=== PATIENT | female | born 1960 | race Caucasian/White ===

== ENCOUNTER 2022-11-14 21:01 | Inpatient (IN) | payer MEDICAID ==
[~2022-11-14] VITALS: Ht 170.2 cm; Wt 46.7 kg
[2022-11-14 22:11] LABS: BASOPHILS # (AUTO) 0.1 X10'3 (0-0.2); BASOPHILS % (AUTO) 1.1 % (0-1); EOSINOPHILS % (AUTO) 0.9 % (0-6); LYMPHOCYTES # (AUTO) 1.6 X10'3 (1.1-4.8); LYMPHOCYTES % (AUTO) 34.2 % (21-51); MEAN CORPUSCULAR HGB CONC 27.3 g/dL (33.0-36.5); MEAN CORPUSCULAR VOLUME 62.1 FL (78-98); MEAN PLATELET VOLUME 8.2 FL (7.4-10.4); MONOCYTES # (AUTO) 0.4 X10'3 (0-0.9); MONOCYTES % (AUTO) 8.5 % (2-12); NEUTROPHILS # (AUTO) 2.5 X10'3 (1.8-7.7); NEUTROPHILS % (AUTO) 55.3 % (42-75); PLATELET COUNT 252 X10'3 (140-440); RED BLOOD COUNT 3.05 X10'6 (4.20-5.60); RED CELL DISTRIBUTION WIDTH 21.6 % (11.5-14.5); WHITE BLOOD COUNT 4.6 X10'3 (4.5-11.0)
[2022-11-14 22:19] LABS: HEMATOCRIT 18.9 % (35.0-45.0); HEMOGLOBIN 5.2 g/dl (12.0-16.0)
[2022-11-14 22:23] LABS: ALANINE AMINOTRANSFERASE 10 U/L (12-78); ALBUMIN/GLOBULIN RATIO 0.5 (1.1-1.5); ALKALINE PHOSPHATASE 103 IU/L (46-116); ANION GAP 5 (8-16); ASPARTATE AMINO TRANSFERASE 15 U/L (10-37); BILIRUBIN,TOTAL 0.2 MG/DL (0.1-1.0); BLOOD UREA NITROGEN 11 MG/DL (7-18); BUN/CREATININE RATIO 21.2 (6.6-38.0); CALCIUM 8.3 MG/DL (8.5-10.1); CHLORIDE 104 MMOL/L (99-107); CREATININE 0.52 MG/DL (0.40-0.90); GLUCOSE 97 MG/DL (70-104); POTASSIUM 3.7 MMOL/L (3.5-5.1); SODIUM 137 MMOL/L (135-145); TOTAL CARBON DIOXIDE 28.2 MMOL/L (24-32); TOTAL PROTEIN 6.3 G/DL (6.4-8.2); eGFR > 90 ML/MIN
[2022-11-14 22:31] LABS: ANISOCYTOSIS 3+; MICROCYTOSIS 2+; PLATELET ESTIMATE NORMAL
[2022-11-14 22:32] LABS: ELLIPTOCYTES FEW; HYPOCHROMASIA 1+; POLYCHROMASIA FEW
[2022-11-14 22:33] LABS: TEAR DROP CELLS FEW
[2022-11-14] MEDS ORDERED: acetaminophen 325mg tablet PO ONE (22:40)
[2022-11-14] MEDS ORDERED: famotidine 20mg tablet PO ONE (22:40)
[2022-11-14] MEDS ORDERED: mag hydrox/Alum hydrox/simeth 30ml oral suspension PO ONE (22:40)
[2022-11-14 22:55] LABS: LIPASE < 50 U/L (73-393)
[2022-11-14] MEDS ORDERED: iohexol 350MG/ML 100ml bottle IV ONE (23:01)
[2022-11-15] VITALS (7 sets, daily range): BP systolic 95–114; BP diastolic 41–66
[2022-11-15] MEDS ORDERED: potassium Cl 20 mEq SR tablet PO PRN ×2 (02:25)
[2022-11-15] MEDS ORDERED: magnesium Cl slow-release 64mg tablet PO PRN (02:25)
[2022-11-15] MEDS ORDERED: ondansetron/PF 4mg/2ml inj IV PRN (02:25)
[2022-11-15] MEDS ORDERED: acetaminophen 325mg tablet PO PRN (02:25)
[2022-11-15] MEDS ORDERED: magnesium hydroxide 30ml (MOM) UD suspension PO PRN (02:25)
[2022-11-15] MEDS ORDERED: magnesium 4gm in 100ml NS 100 ML IV PRN (02:25)
[2022-11-15] MEDS ORDERED: potassium Cl 40MEQ/1/2NS 520ml 520 ML IV PRN (02:25)
[2022-11-15 02:43] LABS: CLARITY,URINE SLIGHTLY CLOUDY (Clear); COLOR,URINE YELLOW (Yellow); GLUCOSE, URINE NEGATIVE (Neg); KETONES,URINE NEGATIVE (Neg); LEUKOCYTE ESTERASE ,URINE NEGATIVE (Neg); NITRITES, URINE NEGATIVE (Neg); OCCULT BLOOD,URINE NEGATIVE (Neg); PH,URINE 7.5 (4.8-8.0); PROTEIN,URINE NEGATIVE (Neg); UROBILINOGEN,URINE 0.2 E.U/dL (0.2-1.0)
[2022-11-15] MEDS: normal saline 1000ml 1,000 ML IV SCH (02:46)
[2022-11-15] MEDS: mag hydrox/Alum hydrox/simeth 30ml oral suspension PO PRN ×4 (02:46→22:30)
[2022-11-15 02:48] LABS: UA COLLECTION TYPE CLN CATCH MIDSTREAM
[2022-11-15 02:50] LABS: RBC,URINE 0-2 /HPF (0-2); WBC,URINE 0-4 /HPF (0-4)
[2022-11-15 02:51] LABS: BACTERIA,URINE 4+ /HPF (Neg); MUCUS STRANDS FEW /LPF (Neg); SQUAMOUS EPITHELIAL CELL,UR FEW /LPF (FEW)
[2022-11-15] MEDS ORDERED: NO HOME MEDS (02:55)
[2022-11-15 02:57] LABS: URINE AMPHETAMINE SCREEN NEGATIVE (Neg); URINE BARBITUATE SCREEN NEGATIVE (Neg); URINE BENZODIAZEPINES SCREEN NEGATIVE (Neg); URINE CANNABINOID SCREEN NEGATIVE (Neg); URINE COCAINE SCREEN NEGATIVE (Neg); URINE METHADONE SCREEN NEGATIVE (Neg); URINE OPIATE SCREEN NEGATIVE (Neg); URINE PHENCYCLIDINE SCREEN NEGATIVE (Neg)
[2022-11-15 04:13] LABS: POTASSIUM 4.3 MMOL/L (3.5-5.1)
--- NOTE | 2022-11-15 06:14 | NUR ---
Patient reports burning type epigastric pain recurrent. provider notified maalox given 3 hours ago, provider advises give again, change order to maalox po 3hrs PRN
--- NOTE | 2022-11-15 07:21 | NUR ---
PT REPORTED ABD PAIN DURING MORNING EVAL - MAALOX GIVEN PT HAS A PRN AND STATES THIS HELPED HER LAST NIGHT.
[2022-11-15] MEDS: docusate sod 100mg capsule PO SCH ×3 (08:00→19:54)
[2022-11-15] MEDS ORDERED: enoxaparin 40mg/0.4ml syringe SUBCUT SCH (08:00)
[2022-11-15] MEDS: K and/or MAG REPLACEMENT MC SCH ×2 (08:50→19:19)
--- NOTE | 2022-11-15 12:31 | NUR ---
AGREE WITH PHYSICAL ASSESSMENT DONE BY TODD YOUSIF Addendum: 11/15/22 at 1233 by Brenda Frias RN Amended: Links added.
[2022-11-15 13:08] LABS: BASOPHILS % (AUTO) 0.7 % (0-1); EOSINOPHILS # (AUTO) 0.1 X10'3 (0-0.9); EOSINOPHILS % (AUTO) 1.8 % (0-6); LYMPHOCYTES # (AUTO) 1.5 X10'3 (1.1-4.8); LYMPHOCYTES % (AUTO) 39.9 % (21-51); MEAN CORPUSCULAR HEMOGLOBIN 17.5 PG (27.0-31.0); MEAN CORPUSCULAR HGB CONC 27.6 g/dL (33.0-36.5); MEAN CORPUSCULAR VOLUME 63.4 FL (78-98); MEAN PLATELET VOLUME 8.1 FL (7.4-10.4); MONOCYTES # (AUTO) 0.3 X10'3 (0-0.9); MONOCYTES % (AUTO) 9.3 % (2-12); NEUTROPHILS # (AUTO) 1.8 X10'3 (1.8-7.7); NEUTROPHILS % (AUTO) 48.3 % (42-75); PLATELET COUNT 238 X10'3 (140-440); RED BLOOD COUNT 2.89 X10'6 (4.20-5.60); RED CELL DISTRIBUTION WIDTH 21.6 % (11.5-14.5); WHITE BLOOD COUNT 3.7 X10'3 (4.5-11.0)
[2022-11-15 13:20] LABS: % IRON SATURATION 4 % (11-46); IRON 12 UG/DL (49-151); TOTAL IRON BINDING CAPACITY 268 UG/DL (259-388)
[2022-11-15 13:26] LABS: ALANINE AMINOTRANSFERASE 6 U/L (12-78); ALBUMIN 1.8 G/DL (3.4-5.0); ALBUMIN/GLOBULIN RATIO 0.4 (1.1-1.5); ALKALINE PHOSPHATASE 88 IU/L (46-116); ANION GAP 5 (8-16); ASPARTATE AMINO TRANSFERASE 8 U/L (10-37); BILIRUBIN,TOTAL 0.2 MG/DL (0.1-1.0); BLOOD UREA NITROGEN 7 MG/DL (7-18); BUN/CREATININE RATIO 13.7 (6.6-38.0); CALCIUM 8.3 MG/DL (8.5-10.1); CHLORIDE 106 MMOL/L (99-107); CREATININE 0.51 MG/DL (0.40-0.90); GLUCOSE 91 MG/DL (70-104); POTASSIUM 4.5 MMOL/L (3.5-5.1); SODIUM 137 MMOL/L (135-145); TOTAL CARBON DIOXIDE 26.4 MMOL/L (24-32); TOTAL PROTEIN 5.9 G/DL (6.4-8.2); eGFR > 90 ML/MIN
[2022-11-15 13:34] LABS: HEMATOCRIT 18.3 % (35.0-45.0); HEMOGLOBIN 5.1 g/dl (12.0-16.0)
[2022-11-15 13:44] LABS: ANISOCYTOSIS 3+; HYPOCHROMASIA 2+; MICROCYTOSIS 2+; PLATELET ESTIMATE NORMAL; POIKILOCYTOSIS FEW; SCHISTOCYTES FEW; STOMATOCYTES FEW
--- NOTE | 2022-11-15 17:33 | NUR ---
Received report from Ruthie in [place].
--- NOTE | 2022-11-15 18:27 | NUR ---
Problems reprioritized. Patient report given to Rachel YOUSIF, questions answered & plan of care reviewed with .
[2022-11-15 20:14] LABS: HEMATOCRIT 23.8 % (35.0-45.0); HEMOGLOBIN 7.2 g/dl (12.0-16.0); MEAN CORPUSCULAR HEMOGLOBIN 20.3 PG (27.0-31.0); MEAN CORPUSCULAR HGB CONC 30.2 g/dL (33.0-36.5); MEAN CORPUSCULAR VOLUME 67.4 FL (78-98); MEAN PLATELET VOLUME 8.5 FL (7.4-10.4); PLATELET COUNT 241 X10'3 (140-440); RED BLOOD COUNT 3.54 X10'6 (4.20-5.60); RED CELL DISTRIBUTION WIDTH 26.6 % (11.5-14.5); WHITE BLOOD COUNT 5.2 X10'3 (4.5-11.0)
[2022-11-16] VITALS (11 sets, daily range): BP systolic 81–115; BP diastolic 40–57
[2022-11-16] MEDS: mag hydrox/Alum hydrox/simeth 30ml oral suspension PO PRN ×6 (01:29→22:29)
--- NOTE | 2022-11-16 06:26 | NUR ---
Problems reprioritized. Patient report given, questions answered & plan of care reviewed with NICA Hubbard.
[2022-11-16 06:45] LABS: BASOPHILS % (AUTO) 0.6 % (0-1); EOSINOPHILS % (AUTO) 0.4 % (0-6); HEMATOCRIT 24.9 % (35.0-45.0); HEMOGLOBIN 7.5 g/dl (12.0-16.0); LYMPHOCYTES # (AUTO) 1.4 X10'3 (1.1-4.8); LYMPHOCYTES % (AUTO) 21.7 % (21-51); MEAN CORPUSCULAR HEMOGLOBIN 20.1 PG (27.0-31.0); MEAN CORPUSCULAR HGB CONC 30.1 g/dL (33.0-36.5); MEAN CORPUSCULAR VOLUME 66.7 FL (78-98); MEAN PLATELET VOLUME 8.5 FL (7.4-10.4); MONOCYTES # (AUTO) 0.4 X10'3 (0-0.9); MONOCYTES % (AUTO) 6.3 % (2-12); NEUTROPHILS # (AUTO) 4.7 X10'3 (1.8-7.7); PLATELET COUNT 257 X10'3 (140-440); RED BLOOD COUNT 3.73 X10'6 (4.20-5.60); RED CELL DISTRIBUTION WIDTH 26.3 % (11.5-14.5); WHITE BLOOD COUNT 6.7 X10'3 (4.5-11.0)
--- NOTE | 2022-11-16 06:48 | NUR ---
Patient in room [facility] 343. I have received report from Miranda Smart and had the opportunity to ask questions and assume patient care.
[2022-11-16 07:07] LABS: ALANINE AMINOTRANSFERASE 11 U/L (12-78); ALBUMIN 2.1 G/DL (3.4-5.0); ALBUMIN/GLOBULIN RATIO 0.5 (1.1-1.5); ALKALINE PHOSPHATASE 99 IU/L (46-116); ANION GAP 6 (8-16); ASPARTATE AMINO TRANSFERASE 14 U/L (10-37); BILIRUBIN,TOTAL 0.3 MG/DL (0.1-1.0); BLOOD UREA NITROGEN 14 MG/DL (7-18); BUN/CREATININE RATIO 30.4 (6.6-38.0); CALCIUM 7.8 MG/DL (8.5-10.1); CHLORIDE 103 MMOL/L (99-107); CREATININE 0.46 MG/DL (0.40-0.90); GLUCOSE 99 MG/DL (70-104); MAGNESIUM 2.3 MG/DL (1.5-2.4); POTASSIUM 4.2 MMOL/L (3.5-5.1); SODIUM 135 MMOL/L (135-145); TOTAL CARBON DIOXIDE 26.5 MMOL/L (24-32); TOTAL PROTEIN 6.4 G/DL (6.4-8.2); eGFR > 90 ML/MIN
[2022-11-16] MEDS: docusate sod 100mg capsule PO SCH ×2 (07:28→20:00)
[2022-11-16] MEDS: K and/or MAG REPLACEMENT MC SCH ×2 (08:00→20:00)
[2022-11-16] MEDS ORDERED: fentaNYL/PF 50MCG/1 ML 2ML syringe ONE (08:32)
[2022-11-16] MEDS ORDERED: MIDAZolam 1 MG/ML 5ML VIAL ONE (08:32)
[2022-11-16] MEDS ORDERED: LIDOcaine Viscous 15ml cup ONE (08:32)
[2022-11-16] MEDS ORDERED: ciprofloxacin 250mg tablet PO SCH (08:50)
--- NOTE | 2022-11-16 10:57 | NUR ---
Patient in room [facility] 343. I have received report from Haydee YOUSIF and had the opportunity to ask questions and assume patient care.
[2022-11-16] MEDS ORDERED: metoclopramide 10mg tablet PO PRN (11:00)
[2022-11-16] MEDS ORDERED: iron dextran complex inj. 0 MG in normal saline 500ml IV soln 500 ML IV ONE (11:00)
[2022-11-16] MEDS: famotidine/PF IV inj 40 MG in normal saline 100ml IV soln 100 ML IV SCH ×2 (12:18→21:16)
[2022-11-16] MEDS: normal saline 1000ml 1,000 ML IV SCH (15:06)
[2022-11-16] MEDS: ciprofloxacin 250mg tablet PO SCH ×2 (15:06→21:12)
--- NOTE | 2022-11-16 15:45 | NUR ---
Malnutrition consult: Pt reports 24-33 lb wt loss with decreased appetite per malnutrition risk screen with RN. Current BMI is low with weight of 46.72 kg though not scaled. Attempted visit with pt at bedside however pt sleeping and did not wake with verbal cues. Per EMR pt with no documented significant decrease in muscle strength or edema. Malnutrition assessment pending at this time until more information is obtained. Pt on a full liquid diet at this time per GI doctor s/p EGD. Will continue to follow. Addendum: 11/16/22 at [address] Amended: Links added.
[2022-11-16] MEDS ORDERED: ferrous gluconate 324mg tablet PO SCH (16:09)
[2022-11-16] MEDS ORDERED: sodium ferric gluc complex 125 MG/NS IV soln 110 ML BAG IV ONE ×2 (16:30)
--- NOTE | 2022-11-16 18:20 | NUR ---
Problems reprioritized. Patient report given, questions answered & plan of care reviewed with Gisela YOUSIF ICU Nurse.
[2022-11-16] MEDS: enoxaparin 40mg/0.4ml syringe SUBCUT SCH (20:00)
[2022-11-16] MEDS ORDERED: famotidine/PF IV inj 40 MG in normal saline 100ml IV soln 100 ML IV SCH (20:00)
[2022-11-16] MEDS: ferrous gluconate 324mg tablet PO SCH (21:00)
[2022-11-17] VITALS (11 sets, daily range): BP systolic 79–102; BP diastolic 37–58
[2022-11-17] MEDS: mag hydrox/Alum hydrox/simeth 30ml oral suspension PO PRN ×5 (02:58→23:15)
--- NOTE | 2022-11-17 06:39 | NUR ---
Patient in room [facility] 343. I have received report from NICA Higgins and had the opportunity to ask questions and assume patient care.
[2022-11-17 06:59] LABS: BASOPHILS % (AUTO) 0.9 % (0-1); EOSINOPHILS # (AUTO) 0.1 X10'3 (0-0.9); EOSINOPHILS % (AUTO) 1.7 % (0-6); LYMPHOCYTES # (AUTO) 1.7 X10'3 (1.1-4.8); LYMPHOCYTES % (AUTO) 46.5 % (21-51); MEAN CORPUSCULAR HEMOGLOBIN 20.2 PG (27.0-31.0); MEAN CORPUSCULAR HGB CONC 29.5 g/dL (33.0-36.5); MEAN CORPUSCULAR VOLUME 68.5 FL (78-98); MEAN PLATELET VOLUME 8.3 FL (7.4-10.4); MONOCYTES # (AUTO) 0.4 X10'3 (0-0.9); NEUTROPHILS # (AUTO) 1.4 X10'3 (1.8-7.7); NEUTROPHILS % (AUTO) 39.9 % (42-75); PLATELET COUNT 221 X10'3 (140-440); RED BLOOD COUNT 2.91 X10'6 (4.20-5.60); RED CELL DISTRIBUTION WIDTH 25.9 % (11.5-14.5); WHITE BLOOD COUNT 3.6 X10'3 (4.5-11.0)
[2022-11-17 07:02] LABS: HEMATOCRIT 19.9 % (35.0-45.0); HEMOGLOBIN 5.9 g/dl (12.0-16.0)
--- NOTE | 2022-11-17 07:05 | NUR ---
CRITICAL HBG 5.9, HCT 19.9, PAGE WAITING FOR CALL BACK PAGER ID: [phone] MESSAGE: [facility]CR[facility] 343B: CRITICAL HGB 5.9, HCT 19.9. THANK YOU MALACHI [id number]
[2022-11-17 07:23] LABS: ALANINE AMINOTRANSFERASE 9 U/L (12-78); ALBUMIN 1.8 G/DL (3.4-5.0); ALBUMIN/GLOBULIN RATIO 0.5 (1.1-1.5); ALKALINE PHOSPHATASE 77 IU/L (46-116); ANION GAP 7 (8-16); ASPARTATE AMINO TRANSFERASE 14 U/L (10-37); BILIRUBIN,TOTAL 0.2 MG/DL (0.1-1.0); BLOOD UREA NITROGEN 7 MG/DL (7-18); BUN/CREATININE RATIO 16.7 (6.6-38.0); CALCIUM 7.6 MG/DL (8.5-10.1); CHLORIDE 110 MMOL/L (99-107); CREATININE 0.42 MG/DL (0.40-0.90); GLUCOSE 89 MG/DL (70-104); MAGNESIUM 2.2 MG/DL (1.5-2.4); POTASSIUM 3.8 MMOL/L (3.5-5.1); SODIUM 139 MMOL/L (135-145); TOTAL PROTEIN 5.5 G/DL (6.4-8.2); eGFR > 90 ML/MIN
[2022-11-17 07:24] LABS: ANISOCYTOSIS 3+; HYPOCHROMASIA 2+; MICROCYTOSIS 2+; PLATELET ESTIMATE NORMAL
[2022-11-17] MEDS: K and/or MAG REPLACEMENT MC SCH ×2 (07:40→20:00)
[2022-11-17] MEDS: docusate sod 100mg capsule PO SCH ×2 (07:43→20:00)
[2022-11-17] MEDS: enoxaparin 40mg/0.4ml syringe SUBCUT SCH ×2 (07:44→20:00)
[2022-11-17] MEDS: ferrous gluconate 324mg tablet PO SCH ×2 (07:47→08:00)
--- NOTE | 2022-11-17 07:59 | NUR ---
PAGER ID: [phone] MESSAGE: Carlos Smith Room 343B. Pt had large drop in H/H. Would you like me to hold lovenox? Thank you, Kyleigh [phone] Addendum: 11/17/22 at 0801 by Kyleigh Tovar LVN Doctor responded, got order to hold Lovenox until she speaks with SAMMI BRUCE.
[2022-11-17] MEDS: famotidine/PF IV inj 40 MG in normal saline 100ml IV soln 100 ML IV SCH ×2 (08:35→20:04)
--- NOTE | 2022-11-17 09:41 | NUR ---
Page sent to regarding blood order. PAGER ID: [phone] MESSAGE: Carlos Smith Room 343B. Lab called and asked for clarification if blood needed to be irradiated. Also, need signature for hemoccult. Please advise. Thanks! Kyleigh [phone]
[2022-11-17] MEDS: ciprofloxacin 250mg tablet PO SCH ×2 (10:49→21:54)
--- NOTE | 2022-11-17 10:52 | NUR ---
Page sent to . PAGER ID: [phone] MESSAGE: Deyanira Smith Room 343B Lab called and asked for clarification if blood needed to be irradiated. Also, need signature for hemoccult. Please advise. Thanks! Kyleigh [phone]
[2022-11-17 11:16] LABS: OCCULT BLOOD STOOL POSITIVE (Neg)
--- NOTE | 2022-11-17 11:25 | NUR ---
I have reviewed and agree with all interventions, assessments performed and documented by NICA MARIE. Addendum: 11/17/22 at 1413 by Niki Marsh RN JAMIA MARIE
--- NOTE | 2022-11-17 16:09 | NUR ---
F/u 11/17: Pt admit DX LLE DVT and anemia hx dysphagia and GERD s/p EGD this admit per EMR. Per EGD note, DX mild duodenitis, 3-4cm hiatal hernia, severe erosive esophagitis in a pattern consistent with reflux esophagitis involving the gastroesophageal junction, distal and mid esophagus, and retained food in stomach suggestive of gastroparesis. Currently on full liquids diet advanced to regular/grind all diet WL today per pt request PO 100% meals. Pt seen by RD at bedside for written/verbal reflux/gastroparesis diet eds w/ RD contact information provided. Pt visible severe muscle/fat wasting evident to total body during RD visit; pt reports ~30 pounds wt loss unable to give timeline only state had "flu" twice past ~3-4 months causing decreased intake. Pending scaled wt this admit though reported wt loss ~21% UBW 3-4 months severe. Given muscle/fat wasting and predicted suboptimal intake pt meets severe malnutrition criteria; MD notified. Despite significant reflux hx pt food recall when sick consisted of large portions of typical reflux-inducing foods such as peppermint ice cream which pt reports she tolerated w/ no issues of PO intolerance prior to "flu." Pt reports tolerating current regular meals excited to have solid foods. When RD addressed nutrition repletion for malnutrition status pt reports does not consume "artificial foods" such as ONS. LBM 11/17. Will monitor for initial solid meals tolerance and further nutrition intervention needs this admit. Rec: 1. continue regular diet; if signs of intolerance change to low-fat/low-fiber diet given reflux/gastroparesis DX per GI MD note 2. bowel care per rx 3. routine promotility agent per MD 4. scaled wt this admit; subsequent weekly wts Addendum: 11/17/22 at [address] Amended: Links added.
[2022-11-17 17:43] LABS: HEMATOCRIT 25.4 % (35.0-45.0); HEMOGLOBIN 7.7 g/dl (12.0-16.0); MEAN CORPUSCULAR HEMOGLOBIN 22.5 PG (27.0-31.0); MEAN CORPUSCULAR HGB CONC 30.4 g/dL (33.0-36.5); MEAN PLATELET VOLUME 7.6 FL (7.4-10.4); PLATELET COUNT 189 X10'3 (140-440); RED BLOOD COUNT 3.43 X10'6 (4.20-5.60); RED CELL DISTRIBUTION WIDTH 29.3 % (11.5-14.5); WHITE BLOOD COUNT 4.2 X10'3 (4.5-11.0)
--- NOTE | 2022-11-17 18:21 | NUR ---
Problems reprioritized. Patient report given, questions answered & plan of care reviewed with NICA Allen.
[2022-11-18 06:00] VITALS: BP 116/64
[2022-11-18 06:06] LABS: ALANINE AMINOTRANSFERASE 11 U/L (12-78); ALBUMIN 1.9 G/DL (3.4-5.0); ALBUMIN/GLOBULIN RATIO 0.5 (1.1-1.5); ALKALINE PHOSPHATASE 92 IU/L (46-116); ANION GAP 6 (8-16); ASPARTATE AMINO TRANSFERASE 14 U/L (10-37); BILIRUBIN,TOTAL 0.2 MG/DL (0.1-1.0); BLOOD UREA NITROGEN 15 MG/DL (7-18); BUN/CREATININE RATIO 27.8 (6.6-38.0); CALCIUM 7.9 MG/DL (8.5-10.1); CHLORIDE 107 MMOL/L (99-107); CREATININE 0.54 MG/DL (0.40-0.90); GLUCOSE 86 MG/DL (70-104); MAGNESIUM 2.2 MG/DL (1.5-2.4); SODIUM 137 MMOL/L (135-145); TOTAL CARBON DIOXIDE 24.3 MMOL/L (24-32); TOTAL PROTEIN 5.9 G/DL (6.4-8.2); eGFR > 90 ML/MIN
[2022-11-18 06:08] LABS: BASOPHILS % (AUTO) 0.2 % (0-1); EOSINOPHILS # (AUTO) 0.1 X10'3 (0-0.9); EOSINOPHILS % (AUTO) 2.1 % (0-6); HEMATOCRIT 26.4 % (35.0-45.0); LYMPHOCYTES # (AUTO) 1.8 X10'3 (1.1-4.8); LYMPHOCYTES % (AUTO) 38.6 % (21-51); MEAN CORPUSCULAR HEMOGLOBIN 22.1 PG (27.0-31.0); MEAN CORPUSCULAR HGB CONC 30.2 g/dL (33.0-36.5); MEAN CORPUSCULAR VOLUME 73.1 FL (78-98); MEAN PLATELET VOLUME 8.2 FL (7.4-10.4); MONOCYTES # (AUTO) 0.5 X10'3 (0-0.9); MONOCYTES % (AUTO) 10.7 % (2-12); NEUTROPHILS # (AUTO) 2.2 X10'3 (1.8-7.7); NEUTROPHILS % (AUTO) 48.4 % (42-75); PLATELET COUNT 205 X10'3 (140-440); RED BLOOD COUNT 3.61 X10'6 (4.20-5.60); RED CELL DISTRIBUTION WIDTH 29.6 % (11.5-14.5); WHITE BLOOD COUNT 4.6 X10'3 (4.5-11.0)
--- NOTE | 2022-11-18 06:30 | NUR ---
Patient in room [facility] 343. I have received report from NCIA Allen and had the opportunity to ask questions and assume patient care.
[2022-11-18 07:42] LABS: ANISOCYTOSIS 3+; MICROCYTOSIS 1+; PLATELET ESTIMATE NORMAL
[2022-11-18 07:43] LABS: HYPOCHROMASIA 2+; SCHISTOCYTES FEW; TEAR DROP CELLS FEW
[2022-11-18] MEDS: docusate sod 100mg capsule PO SCH ×2 (07:49→19:38)
[2022-11-18] MEDS: K and/or MAG REPLACEMENT MC SCH ×2 (07:50→19:37)
[2022-11-18] MEDS: enoxaparin 40mg/0.4ml syringe SUBCUT SCH (08:00)
[2022-11-18] MEDS: mag hydrox/Alum hydrox/simeth 30ml oral suspension PO PRN ×3 (08:30→20:09)
[2022-11-18] MEDS: famotidine/PF IV inj 40 MG in normal saline 100ml IV soln 100 ML IV SCH (09:20)
--- NOTE | 2022-11-18 10:23 | NUR ---
[facility]
[2022-11-18] MEDS: ciprofloxacin 250mg tablet PO SCH ×2 (10:34→22:32)
[2022-11-18 11:00] VITALS: BP 108/60
--- NOTE | 2022-11-18 12:30 | NUR ---
I have reviewed and agree with all interventions, assessments performed and documented by JAMIA MARIE.
[2022-11-18] MEDS ORDERED: heparin 10,000 units/1 ML INJ IV ONE (15:35)
[2022-11-18] MEDS ORDERED: heparin 25,000 UNIT/250ml bag 250 ML IV PRN (15:35)
[2022-11-18 18:00] VITALS: BP 111/59
--- NOTE | 2022-11-18 18:39 | NUR ---
Problems reprioritized. Patient report given, questions answered & plan of care reviewed with NIAC Allen.
[2022-11-18] MEDS: heparin 25,000 UNIT/250ml bag 250 ML IV PRN (19:24)
[2022-11-18] MEDS: famotidine 20mg tablet PO SCH (20:09)
[2022-11-18 22:00] VITALS: BP 121/67
[2022-11-19 01:44] LABS: BASOPHILS % (AUTO) 0.7 % (0-1); EOSINOPHILS # (AUTO) 0.1 X10'3 (0-0.9); EOSINOPHILS % (AUTO) 1.6 % (0-6); HEMATOCRIT 26.8 % (35.0-45.0); HEMOGLOBIN 8.2 g/dl (12.0-16.0); LYMPHOCYTES # (AUTO) 2.2 X10'3 (1.1-4.8); MEAN CORPUSCULAR HEMOGLOBIN 22.1 PG (27.0-31.0); MEAN CORPUSCULAR HGB CONC 30.6 g/dL (33.0-36.5); MEAN CORPUSCULAR VOLUME 72.2 FL (78-98); MEAN PLATELET VOLUME 8.2 FL (7.4-10.4); MONOCYTES # (AUTO) 0.5 X10'3 (0-0.9); MONOCYTES % (AUTO) 10.2 % (2-12); NEUTROPHILS # (AUTO) 2.2 X10'3 (1.8-7.7); NEUTROPHILS % (AUTO) 43.5 % (42-75); PLATELET COUNT 226 X10'3 (140-440); RED BLOOD COUNT 3.72 X10'6 (4.20-5.60); RED CELL DISTRIBUTION WIDTH 29.9 % (11.5-14.5); WHITE BLOOD COUNT 4.9 X10'3 (4.5-11.0)
[2022-11-19 01:55] LABS: ALANINE AMINOTRANSFERASE 6 U/L (12-78); ALBUMIN 2.1 G/DL (3.4-5.0); ALBUMIN/GLOBULIN RATIO 0.5 (1.1-1.5); ALKALINE PHOSPHATASE 100 IU/L (46-116); ANION GAP 5 (8-16); ASPARTATE AMINO TRANSFERASE 18 U/L (10-37); BILIRUBIN,TOTAL 0.3 MG/DL (0.1-1.0); BLOOD UREA NITROGEN 20 MG/DL (7-18); BUN/CREATININE RATIO 28.2 (6.6-38.0); CALCIUM 8.2 MG/DL (8.5-10.1); CHLORIDE 105 MMOL/L (99-107); CREATININE 0.71 MG/DL (0.40-0.90); GLUCOSE 95 MG/DL (70-104); MAGNESIUM 2.1 MG/DL (1.5-2.4); POTASSIUM 4.5 MMOL/L (3.5-5.1); SODIUM 134 MMOL/L (135-145); TOTAL CARBON DIOXIDE 23.9 MMOL/L (24-32); TOTAL PROTEIN 6.4 G/DL (6.4-8.2); eGFR 83 ML/MIN
[2022-11-19] MEDS: normal saline 1000ml 1,000 ML IV SCH (02:25)
[2022-11-19] MEDS: heparin 10,000 units/1 ML INJ IV PRN ×2 (02:48→10:18)
[2022-11-19] MEDS: mag hydrox/Alum hydrox/simeth 30ml oral suspension PO PRN ×3 (05:13→15:10)
[2022-11-19 06:00] VITALS: BP 105/62
--- NOTE | 2022-11-19 06:55 | NUR ---
Patient in room [facility] 343. I have received report from NICA Allen and had the opportunity to ask questions and assume patient care.
[2022-11-19] MEDS: K and/or MAG REPLACEMENT MC SCH (07:14)
[2022-11-19] MEDS: docusate sod 100mg capsule PO SCH (07:14)
[2022-11-19] MEDS: famotidine 20mg tablet PO SCH (07:21)
[2022-11-19 10:00] VITALS: BP 104/55
[2022-11-19] MEDS: ciprofloxacin 250mg tablet PO SCH (10:14)
[2022-11-19] MEDS: heparin 25,000 UNIT/250ml bag 250 ML IV PRN (10:20)
[2022-11-19] MEDS ORDERED: apixaban 5mg tablet PO SCH (10:25)
--- NOTE | 2022-11-19 10:46 | NUR ---
WHILE ROUNDING WITH THE DR PLAN OF CARE WAS DISCUSSED. DR EXPRESSED THAT HE WAS GOING TO DC HEPARIN DRIP AND START ELIQUIS AND GO HOME TODAY. PATIENT EXPRESSED THAT FAMILY COULD NOT COME TO GET HER DUE TO SNOW AND POWER BEING OUT, DR STATED HE WOULD TALK TO CASE MANAGEMENT/REVENUE INVESTIGATOR AND SEE WHAT WE COULD DO IN WAY OF GETTING PATIENT HOME. WHILE PULLING DOWN HEPARIN DRIP AND REITERATING THE DR'S PLAN AND THAT WHEN ELIQUIS IS UP WE WOULD GIVE IT TO HER. PATIENT STATED SHE WOULD NOT TAKE ELIQUIS. WITH SOME BACK AND FORTH WITH DR AND PATIENT. VIVEK WAS REFUSING ALL POSSIBLE OPTIONS FOR HER CONDITION. DECIDED THAT THE DISCHARGE PLAN WAS TO SEND HER HOME ON ELIQUIS, WITH A COUPON. EDUCATED THE PATIENT ON THE PLAN MOVING FORWARD. EDUCATED THE PATIENT ON RISK VERSES BENEFITS FOR NOT TAKING THE ELIQUIS INCLUDING A BLOOD CLOT IN THE LUNGS, LOSS OF CIRCULATION TO THE LEG AND POSSIBLE , I ALSO LET HER KNOW THE TIME PERIOD FOR TAKING THE MEDS WAS SHORT AND NOT JAIL. PATIENT STATED SHE WOULD TAKE THE MED
[2022-11-19] MEDS ORDERED: FAMO40TA86 PO (10:51)
[2022-11-19] MEDS ORDERED: APIX5TAB3 PO (10:51)
--- NOTE | 2022-11-19 11:24 | NUR ---
I have reviewed and agree with all interventions, assessments performed and documented by JAMIA MARIE.
--- NOTE | 2022-11-19 17:11 | NUR ---
Patient is stable and appropriate for discharge. Meds called into pharmacy, $31 given to patient for Pepcid script and Eliquis coupon given to patient. Transportation provided thought [employer] paid for by [facility]. Discharge instructions given to patient. Tele box and IV removed. All belongings sent with patient.
== END 2022-11-19 16:48 | disposition home or self-care (01) | DRG 243 ==
LOC: ER 21:02 → ED HOLD 11-15 02:25 → SUR 3N 11-15 10:08
PROVIDERS: ADMIT Internal Medicine; ATTEND Internal Medicine
PROC: B32T1ZZ Computerized Tomography (CT Scan) of Left Pulmonary Artery using Low Osmolar Contrast (ICD-10-PCS; 2022-11-14)
PROC: B3201ZZ Computerized Tomography (CT Scan) of Thoracic Aorta using Low Osmolar Contrast (ICD-10-PCS; 2022-11-14)
PROC: B32S1ZZ Computerized Tomography (CT Scan) of Right Pulmonary Artery using Low Osmolar Contrast (ICD-10-PCS; 2022-11-14)
PROC: 30233N1 Transfusion of Nonautologous Red Blood Cells into Peripheral Vein, Percutaneous Approach (ICD-10-PCS; 2022-11-15)
PROC: 0DB48ZX Excision of Esophagogastric Junction, Via Natural or Artificial Opening Endoscopic, Diagnostic (ICD-10-PCS; principal; 2022-11-16)
PROC: 0DB78ZX Excision of Stomach, Pylorus, Via Natural or Artificial Opening Endoscopic, Diagnostic (ICD-10-PCS; 2022-11-16)
PROC: 0DB28ZX Excision of Middle Esophagus, Via Natural or Artificial Opening Endoscopic, Diagnostic (ICD-10-PCS; 2022-11-16)
DX: K21.01 Gastro-esophageal reflux disease with esophagitis, with bleeding (principal); I82.402 Acute embolism and thrombosis of unspecified deep veins of left lower extremity; D62 Acute posthemorrhagic anemia; J44.9 Chronic obstructive pulmonary disease, unspecified; N39.0 Urinary tract infection, site not specified; B96.20 Unspecified Escherichia coli [E. coli] as the cause of diseases classified elsewhere; F17.210 Nicotine dependence, cigarettes, uncomplicated; K29.80 Duodenitis without bleeding; K44.9 Diaphragmatic hernia without obstruction or gangrene; Z86.16 Personal history of COVID-19; Z88.8 Allergy status to other drugs, medicaments and biological substances
CPT/HCPCS: 36415; 36430; 43239; 71275; 80053; 80305; 81001; 82272; 83540; 83550; 83690; 83735; 84132; 85008; 85025; 85027; 85610; 85730; 86870; 86885; 86900; 86901; 86902; 86920; 86922; 87077; 87081; 87088; 87186; 93005; 93971; 99152; 99285; A4615; A4620; A6250; G0378; J1644; J1650; J2250; J3010; J3490; J7030; J7040; J8597; P9016; Q9967

== ENCOUNTER 2024-10-17 22:17 | Inpatient (IN) | payer MEDICARE, MEDICAID ==
[~2024-10-17] VITALS: Ht 170.2 cm; Wt 44.0 kg
[~2024-10-17 22:17] MED LIST: APIX5TAB3 PO; FAMO40TA86 PO
[2024-10-17] MEDS: LIDOcaine 1% W/epiNEPHrine 1:100,000 20ml vial SQ ONE (22:45)
[2024-10-17] MEDS: dicyclomine 10mg/ml 2ml ampule IM ONE (22:45)
[2024-10-17] MEDS: LidoCAINE 2% Topical Jelly 11mL syringe (UROJET) TOP ONE (22:46)
[2024-10-17 22:51] LABS: BASOPHILS % (AUTO) 0.2 % (0-1); EOSINOPHILS % (AUTO) 0 % (0-6); LYMPHOCYTES # (AUTO) 1.1 X10'3 (1.1-4.8); LYMPHOCYTES % (AUTO) 8.3 % (21-51); MEAN CORPUSCULAR HEMOGLOBIN 16.7 PG (27.0-31.0); MEAN CORPUSCULAR HGB CONC 25.8 g/dL (33.0-36.5); MEAN CORPUSCULAR VOLUME 64.5 FL (78-98); MONOCYTES # (AUTO) 0.6 X10'3 (0-0.9); MONOCYTES % (AUTO) 4.6 % (2-12); NEUTROPHILS # (AUTO) 11.5 X10'3 (1.8-7.7); NEUTROPHILS % (AUTO) 86.9 % (42-75); PLATELET COUNT 115 X10'3 (140-440); RED BLOOD COUNT 1.44 X10'6 (4.20-5.60); RED CELL DISTRIBUTION WIDTH 23.1 % (11.5-14.5); WHITE BLOOD COUNT 13.3 X10'3 (4.5-11.0)
[2024-10-17 22:55] LABS: HEMATOCRIT 9.3 % (35.0-45.0); HEMOGLOBIN 2.4 g/dl (12.0-16.0)
[2024-10-17] MEDS: midazolam 1 mg/ML 2ml injection IV ONE ×2 (23:01→23:31)
[2024-10-17 23:11] LABS: INR 1.4 INR; PROTHROMBIN TIME 14.3 SECONDS (9.0-12.0)
[2024-10-17 23:18] LABS: ALANINE AMINOTRANSFERASE 19 U/L (12-78); ALBUMIN 2.5 G/DL (3.4-5.0); ALBUMIN/GLOBULIN RATIO 0.6 (1.1-1.5); ALKALINE PHOSPHATASE 113 IU/L (46-116); ANION GAP 24 (8-16); ASPARTATE AMINO TRANSFERASE 18 U/L (10-37); BILIRUBIN,TOTAL 0.4 MG/DL (0.1-1.0); BLOOD UREA NITROGEN 33 MG/DL (7-18); BUN/CREATININE RATIO 19.8 (10.0-20.0); CALCIUM 7.9 MG/DL (8.5-10.1); CHLORIDE 104 MMOL/L (99-107); CREATININE 1.67 MG/DL (0.40-0.90); FERRITIN 6 NG/ML (8-252); GLUCOSE 113 MG/DL (70-104); POTASSIUM 4.2 MMOL/L (3.5-5.1); SODIUM 142 MMOL/L (135-145); TOTAL PROTEIN 6.6 G/DL (6.4-8.2); eCRCL 23 ML/MIN; eGFR 31 ML/MIN
[2024-10-17 23:24] LABS: APTT 20 SECONDS (22-32)
[2024-10-17 23:46] LABS: ANISOCYTOSIS 2+; HYPOCHROMASIA 3+; MICROCYTOSIS 2+; PLATELET ESTIMATE DECREASED
[2024-10-18] VITALS (22 sets, daily range): BP systolic 70–139; BP diastolic 34–73; PULSE 67–92; RESP 10–20; TEMP 96.8–98.6; O2SAT 92–100
[2024-10-18] MEDS ORDERED: NO HOME MEDS (03:01)
[2024-10-18] MEDS ORDERED: magnesium hydroxide 30ml (MOM) UD suspension PO PRN (04:20)
[2024-10-18] MEDS ORDERED: morphine 2 MG/ML inj. syringe IV PRN (04:20)
[2024-10-18] MEDS ORDERED: acetaminophen 325mg tablet PO PRN (04:20)
[2024-10-18] MEDS: LidoCAINE 2% Topical Jelly 11mL syringe (UROJET) TOP ONE (04:37)
[2024-10-18] MEDS: normal saline 1000ml 1,000 ML IV SCH (04:50)
[2024-10-18] MEDS: ondansetron/PF 4mg/2ml inj IV PRN (06:29)
[2024-10-18] MEDS: morphine 4 MG/ML inj SYRINge IV PRN (06:30)
[2024-10-18 07:13] LABS: ALANINE AMINOTRANSFERASE 18 U/L (12-78); ALBUMIN/GLOBULIN RATIO 0.6 (1.1-1.5); ALKALINE PHOSPHATASE 92 IU/L (46-116); AMYLASE 38 U/L (25-115); ANION GAP 13 (8-16); ASPARTATE AMINO TRANSFERASE 18 U/L (10-37); BILIRUBIN,TOTAL 0.4 MG/DL (0.1-1.0); BLOOD UREA NITROGEN 37 MG/DL (7-18); BUN/CREATININE RATIO 23.9 (10.0-20.0); CALCIUM 7.6 MG/DL (8.5-10.1); CHLORIDE 109 MMOL/L (99-107); CREATININE 1.55 MG/DL (0.40-0.90); GLUCOSE 120 MG/DL (70-104); LIPASE 12 U/L (16-77); MAGNESIUM 2.2 MG/DL (1.5-2.4); PHOSPHORUS 4.9 MG/DL (2.3-4.5); POTASSIUM 3.8 MMOL/L (3.5-5.1); SODIUM 143 MMOL/L (135-145); TOTAL CARBON DIOXIDE 21.2 MMOL/L (24-32); TOTAL PROTEIN 5.3 G/DL (6.4-8.2); eCRCL 25 ML/MIN; eGFR 34 ML/MIN
[2024-10-18 07:17] LABS: BASOPHILS % (AUTO) 0.1 % (0-1); EOSINOPHILS % (AUTO) 0 % (0-6); LYMPHOCYTES # (AUTO) 1.2 X10'3 (1.1-4.8); LYMPHOCYTES % (AUTO) 6.6 % (21-51); MEAN CORPUSCULAR HEMOGLOBIN 16.6 PG (27.0-31.0); MEAN CORPUSCULAR HGB CONC 27.4 g/dL (33.0-36.5); MEAN CORPUSCULAR VOLUME 60.7 FL (78-98); MEAN PLATELET VOLUME 8.7 FL (7.4-10.4); MONOCYTES # (AUTO) 0.9 X10'3 (0-0.9); MONOCYTES % (AUTO) 4.9 % (2-12); NEUTROPHILS # (AUTO) 16.5 X10'3 (1.8-7.7); NEUTROPHILS % (AUTO) 88.4 % (42-75); PLATELET COUNT 92 X10'3 (140-440); RED BLOOD COUNT 1.11 X10'6 (4.20-5.60); RED CELL DISTRIBUTION WIDTH 22.7 % (11.5-14.5); WHITE BLOOD COUNT 18.7 X10'3 (4.5-11.0)
[2024-10-18 07:22] LABS: HEMOGLOBIN 1.8 g/dl (12.0-16.0)
[2024-10-18 07:23] LABS: HEMATOCRIT 6.7 % (35.0-45.0)
[2024-10-18 07:25] LABS: PLATELET COUNT 92 X10'3 (140-440)
[2024-10-18 07:28] LABS: APTT 21 SECONDS (22-32); D-DIMER 2.74 MG/L FEU (0-0.50); FIBRINOGEN 220 MG/DL (177-424); INR 1.3 INR; PROTHROMBIN TIME 13.8 SECONDS (9.0-12.0)
[2024-10-18] MEDS: ringers solution, lactated 1000ml IV soln IV ONE ×2 (07:59→09:08)
[2024-10-18] MEDS: ringers solution, lacted 1,000 ML IV SCH (08:00)
[2024-10-18 08:06] LABS: HYPOCHROMASIA 4+; PLATELET ESTIMATE DECREASED
[2024-10-18 08:07] LABS: ANISOCYTOSIS 3+; MICROCYTOSIS 2+
[2024-10-18 08:08] LABS: TEAR DROP CELLS 1+
[2024-10-18 08:16] LABS: LARGE PLATELETS FEW; STOMATOCYTES 2+
[2024-10-18 16:23] LABS: EOSINOPHILS % (AUTO) 0 % (0-6); HEMATOCRIT 28.4 % (35.0-45.0); HEMOGLOBIN 9.2 g/dl (12.0-16.0); MEAN CORPUSCULAR HEMOGLOBIN 26.5 PG (27.0-31.0); MEAN CORPUSCULAR HGB CONC 32.4 g/dL (33.0-36.5); MEAN CORPUSCULAR VOLUME 81.6 FL (78-98)
[2024-10-18 16:25] LABS: BASOPHILS % (AUTO) 0.2 % (0-1); LYMPHOCYTES % (AUTO) 6.6 % (21-51); MEAN PLATELET VOLUME 8.6 FL (7.4-10.4); MONOCYTES # (AUTO) 0.9 X10'3 (0-0.9); MONOCYTES % (AUTO) 6.3 % (2-12); NEUTROPHILS # (AUTO) 12.9 X10'3 (1.8-7.7); NEUTROPHILS % (AUTO) 86.9 % (42-75); RED BLOOD COUNT 3.49 X10'6 (4.20-5.60); RED CELL DISTRIBUTION WIDTH 26.1 % (11.5-14.5); WHITE BLOOD COUNT 14.8 X10'3 (4.5-11.0)
[2024-10-18 16:47] LABS: PLATELET COUNT 50 X10'3 (140-440)
[2024-10-18 18:19] LABS: HEMATOCRIT 27.7 % (35.0-45.0); MEAN CORPUSCULAR HEMOGLOBIN 26.5 PG (27.0-31.0); MEAN CORPUSCULAR HGB CONC 32.6 g/dL (33.0-36.5); MEAN CORPUSCULAR VOLUME 81.3 FL (78-98); MEAN PLATELET VOLUME 8.5 FL (7.4-10.4); RED CELL DISTRIBUTION WIDTH 26.3 % (11.5-14.5); WHITE BLOOD COUNT 13.5 X10'3 (4.5-11.0)
[2024-10-18 18:23] LABS: PLATELET COUNT 42 X10'3 (140-440)
[2024-10-18] MEDS: famotidine 20mg tablet PO SCH (19:33)
[2024-10-18 19:45] LABS: % IRON SATURATION 62 % (11-46); IRON 203 UG/DL (49-151); TOTAL IRON BINDING CAPACITY 327 UG/DL (259-388)
[2024-10-18 21:30] LABS: BILIRUBIN,URINE NEGATIVE (Neg); CLARITY,URINE SLIGHTLY CLOUDY (Clear); COLOR,URINE YELLOW (Yellow); GLUCOSE, URINE NEGATIVE (Neg); KETONES,URINE NEGATIVE (Neg); LEUKOCYTE ESTERASE ,URINE NEGATIVE (Neg); NITRITES, URINE NEGATIVE (Neg); OCCULT BLOOD,URINE LARGE (Neg); PROTEIN,URINE 100 mg/dl (Neg); UROBILINOGEN,URINE 0.2 E.U/dL (0.2-1.0)
[2024-10-18 21:40] LABS: SQUAMOUS EPITHELIAL CELL,UR FEW /LPF (FEW); UA COLLECTION TYPE FOLEY CATH
[2024-10-18 21:41] LABS: BACTERIA,URINE 4+ /HPF (Neg); RBC,URINE 50-100 /HPF (0-2)
[2024-10-18 21:43] LABS: SODIUM,URINE RANDOM < 15 MEQ/L
[2024-10-18 21:53] LABS: OSMOLALITY UA 535 MOSM/K (50-1400)
[2024-10-18 22:17] LABS: UA EOSINOPHILS NO EOS /HPF
[2024-10-19] VITALS (21 sets, daily range): BP systolic 91–143; BP diastolic 48–79; PULSE 64–78; RESP 11–28; TEMP 97.6–98.3; O2SAT 91–97
[2024-10-19 02:52] LABS: BASOPHILS % (AUTO) 0.2 % (0-1); EOSINOPHILS % (AUTO) 0.1 % (0-6); MONOCYTES # (AUTO) 0.5 X10'3 (0-0.9)
[2024-10-19 02:54] LABS: HEMATOCRIT 26.1 % (35.0-45.0); HEMOGLOBIN 8.7 g/dl (12.0-16.0); LYMPHOCYTES # (AUTO) 1.1 X10'3 (1.1-4.8); LYMPHOCYTES % (AUTO) 13.2 % (21-51); MEAN CORPUSCULAR HEMOGLOBIN 26.9 PG (27.0-31.0); MEAN CORPUSCULAR HGB CONC 33.1 g/dL (33.0-36.5); MEAN CORPUSCULAR VOLUME 81.2 FL (78-98); MEAN PLATELET VOLUME 8.6 FL (7.4-10.4); MONOCYTES % (AUTO) 5.8 % (2-12); NEUTROPHILS % (AUTO) 80.7 % (42-75); RED BLOOD COUNT 3.22 X10'6 (4.20-5.60); RED CELL DISTRIBUTION WIDTH 26.4 % (11.5-14.5); WHITE BLOOD COUNT 8.7 X10'3 (4.5-11.0)
[2024-10-19 03:09] LABS: ALANINE AMINOTRANSFERASE 25 U/L (12-78); ALBUMIN 1.9 G/DL (3.4-5.0); ALBUMIN/GLOBULIN RATIO 0.6 (1.1-1.5); ALKALINE PHOSPHATASE 220 IU/L (46-116); ANION GAP 8 (8-16); ASPARTATE AMINO TRANSFERASE 35 U/L (10-37); BLOOD UREA NITROGEN 29 MG/DL (7-18); BUN/CREATININE RATIO 29.3 (10.0-20.0); CHLORIDE 106 MMOL/L (99-107); CREATININE 0.99 MG/DL (0.40-0.90); GLUCOSE 78 MG/DL (70-104); MAGNESIUM 1.5 MG/DL (1.5-2.4); POTASSIUM 3.2 MMOL/L (3.5-5.1); SODIUM 137 MMOL/L (135-145); TOTAL CARBON DIOXIDE 22.6 MMOL/L (24-32); TOTAL PROTEIN 4.9 G/DL (6.4-8.2); eCRCL 39 ML/MIN; eGFR 56 ML/MIN
[2024-10-19 03:21] LABS: PLATELET COUNT 35 X10'3 (140-440)
[2024-10-19] MEDS ORDERED: potassium Cl 20 mEq SR tablet PO PRN (03:30)
[2024-10-19] MEDS: potassium Cl 40MEQ/270ML bag 270 ML IV PRN (04:18)
[2024-10-19] MEDS: K and/or MAG REPLACEMENT MC SCH (08:00)
[2024-10-19 12:22] LABS: RED CELL DISTRIBUTION WIDTH 26.1 % (11.5-14.5)
[2024-10-19 12:23] LABS: HEMATOCRIT 26.4 % (35.0-45.0); HEMOGLOBIN 8.6 g/dl (12.0-16.0); MEAN CORPUSCULAR HEMOGLOBIN 26.6 PG (27.0-31.0); MEAN CORPUSCULAR HGB CONC 32.4 g/dL (33.0-36.5); RED BLOOD COUNT 3.22 X10'6 (4.20-5.60)
[2024-10-19 12:27] LABS: PLATELET COUNT 31 X10'3 (140-440)
[2024-10-19 21:49] LABS: HEMATOCRIT 29.8 % (35.0-45.0); HEMOGLOBIN 9.5 g/dl (12.0-16.0); MEAN CORPUSCULAR HEMOGLOBIN 26.5 PG (27.0-31.0); MEAN CORPUSCULAR HGB CONC 31.9 g/dL (33.0-36.5); MEAN CORPUSCULAR VOLUME 83.2 FL (78-98); MEAN PLATELET VOLUME 7.5 FL (7.4-10.4); RED BLOOD COUNT 3.58 X10'6 (4.20-5.60); RED CELL DISTRIBUTION WIDTH 26.1 % (11.5-14.5); WHITE BLOOD COUNT 7.1 X10'3 (4.5-11.0)
[2024-10-19 21:53] LABS: PLATELET COUNT 24 X10'3 (140-440)
[2024-10-19 21:54] LABS: PLATELET COUNT 24 X10'3 (140-440)
[2024-10-19 22:09] LABS: APTT 23 SECONDS (22-32); D-DIMER 14.99 MG/L FEU (0-0.50); FIBRINOGEN 195 MG/DL (177-424); INR 1.1 INR; PROTHROMBIN TIME 11.4 SECONDS (9.0-12.0)
[2024-10-20] VITALS (21 sets, daily range): BP systolic 96–142; BP diastolic 45–80; PULSE 62–86; RESP 13–22; TEMP 97.1–97.8; O2SAT 92–100
[2024-10-20 05:46] LABS: HEMOGLOBIN 8.4 g/dl (12.0-16.0); LYMPHOCYTES # (AUTO) 0.9 X10'3 (1.1-4.8); MONOCYTES # (AUTO) 0.5 X10'3 (0-0.9)
[2024-10-20 05:48] LABS: BASOPHILS % (AUTO) 0.2 % (0-1); EOSINOPHILS % (AUTO) 0.5 % (0-6); HEMATOCRIT 25.9 % (35.0-45.0); LYMPHOCYTES % (AUTO) 18.2 % (21-51); MEAN CORPUSCULAR HGB CONC 32.4 g/dL (33.0-36.5); MEAN CORPUSCULAR VOLUME 83.1 FL (78-98); MONOCYTES % (AUTO) 9.5 % (2-12); NEUTROPHILS # (AUTO) 3.5 X10'3 (1.8-7.7); NEUTROPHILS % (AUTO) 71.6 % (42-75); RED BLOOD COUNT 3.12 X10'6 (4.20-5.60); WHITE BLOOD COUNT 4.9 X10'3 (4.5-11.0)
[2024-10-20 05:52] LABS: PLATELET COUNT 21 X10'3 (140-440)
[2024-10-20 06:01] LABS: ALANINE AMINOTRANSFERASE 23 U/L (12-78); ALBUMIN 1.8 G/DL (3.4-5.0); ALBUMIN/GLOBULIN RATIO 0.6 (1.1-1.5); ALKALINE PHOSPHATASE 242 IU/L (46-116); ANION GAP 8 (8-16); ASPARTATE AMINO TRANSFERASE 28 U/L (10-37); BILIRUBIN,TOTAL 1.4 MG/DL (0.1-1.0); CALCIUM 7.3 MG/DL (8.5-10.1); CHLORIDE 110 MMOL/L (99-107); CREATININE 0.69 MG/DL (0.40-0.90); GLUCOSE 80 MG/DL (70-104); MAGNESIUM 1.6 MG/DL (1.5-2.4); PHOSPHORUS 1.8 MG/DL (2.3-4.5); POTASSIUM 3.5 MMOL/L (3.5-5.1); SODIUM 139 MMOL/L (135-145); TOTAL CARBON DIOXIDE 21.1 MMOL/L (24-32); TOTAL PROTEIN 4.8 G/DL (6.4-8.2); eCRCL 56 ML/MIN; eGFR 85 ML/MIN
[2024-10-20 06:16] LABS: BLOOD UREA NITROGEN 15 MG/DL (7-18); BUN/CREATININE RATIO 21.7 (10.0-20.0)
[2024-10-20] MEDS ORDERED: LIDOcaine 2% Viscous 15ml cup ONE (15:57)
[2024-10-20] MEDS ORDERED: fentaNYL/PF 50MCG/1 ML 2ML syringe ONE (15:58)
[2024-10-20] MEDS ORDERED: MIDAZolam 1 MG/ML 5ML VIAL ONE (15:58)
[2024-10-20] MEDS: Neutra Phos packet PO PRN (17:16)
[2024-10-20] MEDS: famotidine 20mg tablet PO ONE (21:27)
[2024-10-20] MEDS: metoclopramide 5 mg/ml inj IV ONE (21:28)
[2024-10-21] VITALS (11 sets, daily range): BP systolic 86–147; BP diastolic 48–77; PULSE 64–89; RESP 16–21; TEMP 97–98.5; O2SAT 96–100
[2024-10-21 06:34] LABS: EOSINOPHILS % (AUTO) 0.5 % (0-6); HEMOGLOBIN 8.2 g/dl (12.0-16.0); LYMPHOCYTES # (AUTO) 0.9 X10'3 (1.1-4.8); MEAN PLATELET VOLUME 10.2 FL (7.4-10.4); MONOCYTES # (AUTO) 0.4 X10'3 (0-0.9)
[2024-10-21 06:37] LABS: BASOPHILS % (AUTO) 0.2 % (0-1); HEMATOCRIT 24.7 % (35.0-45.0); LYMPHOCYTES % (AUTO) 16.7 % (21-51); MEAN CORPUSCULAR HEMOGLOBIN 27.3 PG (27.0-31.0); MEAN CORPUSCULAR HGB CONC 33.4 g/dL (33.0-36.5); MEAN CORPUSCULAR VOLUME 81.9 FL (78-98); MONOCYTES % (AUTO) 8.3 % (2-12); NEUTROPHILS # (AUTO) 3.9 X10'3 (1.8-7.7); NEUTROPHILS % (AUTO) 74.3 % (42-75); RED BLOOD COUNT 3.01 X10'6 (4.20-5.60); RED CELL DISTRIBUTION WIDTH 25.8 % (11.5-14.5); WHITE BLOOD COUNT 5.2 X10'3 (4.5-11.0)
[2024-10-21 06:44] LABS: ALANINE AMINOTRANSFERASE 25 U/L (12-78); ALBUMIN 1.7 G/DL (3.4-5.0); ALBUMIN/GLOBULIN RATIO 0.6 (1.1-1.5); ALKALINE PHOSPHATASE 239 IU/L (46-116); ANION GAP 4 (8-16); ASPARTATE AMINO TRANSFERASE 26 U/L (10-37); BILIRUBIN,TOTAL 1.6 MG/DL (0.1-1.0); BLOOD UREA NITROGEN 10 MG/DL (7-18); BUN/CREATININE RATIO 17.2 (10.0-20.0); CALCIUM 7.3 MG/DL (8.5-10.1); CHLORIDE 108 MMOL/L (99-107); CREATININE 0.58 MG/DL (0.40-0.90); GLUCOSE 84 MG/DL (70-104); MAGNESIUM 1.4 MG/DL (1.5-2.4); PHOSPHORUS 1.6 MG/DL (2.3-4.5); POTASSIUM 3.1 MMOL/L (3.5-5.1); SODIUM 137 MMOL/L (135-145); TOTAL PROTEIN 4.5 G/DL (6.4-8.2); eCRCL 67 ML/MIN; eGFR > 90 ML/MIN
[2024-10-21 07:13] LABS: PLATELET COUNT 19 X10'3 (140-440)
[2024-10-21] MEDS: famotidine 20mg tablet PO SCH (08:51)
[2024-10-21] MEDS: potassium Cl 20 mEq SR tablet PO PRN (08:51)
[2024-10-21] MEDS: magnesium sulf-water 2g/50mL 50 ML IV PRN (08:54)
[2024-10-21] MEDS: magnesium sulf-water 4G/100mL 100 ML IV PRN (10:55)
[2024-10-21] MEDS: acetaminophen 325mg tablet PO PRN (22:14)
[2024-10-21] MEDS: famotidine 20mg tablet PO ONE (22:14)
[2024-10-21 23:21] LABS: HEMATOCRIT 25.7 % (35.0-45.0); HEMOGLOBIN 8.7 g/dl (12.0-16.0); MEAN CORPUSCULAR HGB CONC 33.7 g/dL (33.0-36.5); RED CELL DISTRIBUTION WIDTH 25.6 % (11.5-14.5)
[2024-10-21 23:22] LABS: MEAN CORPUSCULAR HEMOGLOBIN 27.7 PG (27.0-31.0); MEAN PLATELET VOLUME 8.6 FL (7.4-10.4); RED BLOOD COUNT 3.13 X10'6 (4.20-5.60); WHITE BLOOD COUNT 9.6 X10'3 (4.5-11.0)
[2024-10-21 23:28] LABS: PLATELET COUNT 25 X10'3 (140-440)
[2024-10-21] MEDS: sucralfate 1 gm tablet PO ONE (23:52)
[2024-10-21] MEDS: calcium carbonate 500mg chew tablet PO ONE (23:53)
[2024-10-22] VITALS (11 sets, daily range): BP systolic 85–128; BP diastolic 42–72; PULSE 81–91; RESP 12–18; TEMP 97.4–97.8; O2SAT 90–100
[2024-10-22] MEDS: sucralfate 1 gm tablet PO PRN (03:13)
[2024-10-22] MEDS: mag hydrox/Alum hydrox/simeth 30ml oral suspension PO ONE (04:28)
[2024-10-22] MEDS: traMADol 50MG tablet PO ONE (04:28)
[2024-10-22 06:07] LABS: ANION GAP 0 (8-16); BILIRUBIN,TOTAL 1.4 MG/DL (0.1-1.0); BLOOD UREA NITROGEN 9 MG/DL (7-18); BUN/CREATININE RATIO 23.7 (10.0-20.0); CALCIUM 7.3 MG/DL (8.5-10.1); CHLORIDE 108 MMOL/L (99-107); CREATININE 0.38 MG/DL (0.40-0.90); GLUCOSE 101 MG/DL (70-104); MAGNESIUM 2.1 MG/DL (1.5-2.4); PHOSPHORUS 1.7 MG/DL (2.3-4.5); POTASSIUM 3.8 MMOL/L (3.5-5.1); SODIUM 138 MMOL/L (135-145); TOTAL CARBON DIOXIDE 30.3 MMOL/L (24-32); eCRCL 103 ML/MIN; eGFR > 90 ML/MIN
[2024-10-22 06:08] LABS: ALANINE AMINOTRANSFERASE 32 U/L (12-78); ALBUMIN/GLOBULIN RATIO 0.7 (1.1-1.5); ALKALINE PHOSPHATASE 255 IU/L (46-116); ASPARTATE AMINO TRANSFERASE 26 U/L (10-37); EOSINOPHILS % (AUTO) 0.2 % (0-6); LYMPHOCYTES # (AUTO) 0.9 X10'3 (1.1-4.8); MONOCYTES # (AUTO) 0.7 X10'3 (0-0.9); RED CELL DISTRIBUTION WIDTH 25.8 % (11.5-14.5); TOTAL PROTEIN 4.9 G/DL (6.4-8.2)
[2024-10-22 06:13] LABS: BASOPHILS % (AUTO) 0.2 % (0-1); HEMATOCRIT 27.4 % (35.0-45.0); LYMPHOCYTES % (AUTO) 9.6 % (21-51); MEAN CORPUSCULAR HEMOGLOBIN 27.1 PG (27.0-31.0); MEAN CORPUSCULAR VOLUME 82.2 FL (78-98); MEAN PLATELET VOLUME 8.4 FL (7.4-10.4); NEUTROPHILS # (AUTO) 8.2 X10'3 (1.8-7.7); RED BLOOD COUNT 3.33 X10'6 (4.20-5.60); WHITE BLOOD COUNT 9.9 X10'3 (4.5-11.0)
[2024-10-22 07:10] LABS: PLATELET COUNT 22 X10'3 (140-440)
[2024-10-22 08:06] LABS: PLATELET ESTIMATE DECREASED
[2024-10-22 08:07] LABS: ANISOCYTOSIS 3+; POLYCHROMASIA 1+; SCHISTOCYTES 1+; TARGET CELLS FEW; TEAR DROP CELLS FEW
[2024-10-22] MEDS: traMADol 50MG tablet PO PRN (09:08)
[2024-10-22 09:35] LABS: FIBRINOGEN 171 MG/DL (177-424); INR 1.2 INR; PROTHROMBIN TIME 12.7 SECONDS (9.0-12.0)
[2024-10-22] MEDS: proCHLORperazine 10 MG/2 ml inj IV PRN (13:11)
[2024-10-22] MEDS: lactose-reduced food (Ensure Enlive) - 237ml bottle PO SCH (13:14)
[2024-10-22] MEDS: HYDROmorphone 1 mg/ml syringe IV ONE (14:21)
[2024-10-22] MEDS: levoFLOXACIN-Levaquin 500mg/D5 100 ML IV ONE (17:33)
[2024-10-22 17:55] LABS: HEMATOCRIT 29.2 % (35.0-45.0); HEMOGLOBIN 9.2 g/dl (12.0-16.0); RED CELL DISTRIBUTION WIDTH 25.2 % (11.5-14.5)
[2024-10-22 17:57] LABS: MEAN CORPUSCULAR HEMOGLOBIN 26.9 PG (27.0-31.0); MEAN CORPUSCULAR HGB CONC 31.5 g/dL (33.0-36.5); MEAN CORPUSCULAR VOLUME 85.6 FL (78-98); MEAN PLATELET VOLUME 8.7 FL (7.4-10.4); RED BLOOD COUNT 3.41 X10'6 (4.20-5.60); WHITE BLOOD COUNT 20.1 X10'3 (4.5-11.0)
[2024-10-22] MEDS: ringers solution, lacted 1,000 ML IV SCH (18:10)
[2024-10-22 18:12] LABS: PLATELET COUNT 19 X10'3 (140-440)
[2024-10-22 21:03] LABS: ABG OXYGEN SATURATION 97.2 % (94.0-98.0); ABG PCO2 (T) 43.2 mmHg (32.0-45.0); ABG PH (T) 7.412 (7.350-7.450); ABG PO2 (T) 91.9 mmHg (83.0-108.0); FCOHb 1.6 % (0.5-1.5); FHHb 2.7 % (0.0-5.0); FMetHb 0.3 % (0.0-1.5); FO2Hb 95.4 % (94.0-98.0); MODE NASAL CANNULA; PATIENT TEMPERATURE 36.4; TOTAL HEMOGLOBIN 8.1 G/dl (12.0-16.0)
[2024-10-22] MEDS ORDERED: albuterol 2.5 MG/3 ML nebule NEB PRN (22:10)
[2024-10-22] MEDS: ipratropium/albuterol 3ml nebule NEB SCH (23:11)
[2024-10-23] VITALS (15 sets, daily range): BP systolic 85–124; BP diastolic 33–82; PULSE 70–124; RESP 13–20; TEMP 97.2–98.2; O2SAT 90–99
[2024-10-23] MEDS: metroNIDAZOLE-Flagyl 500mg/NS 100 ML IV SCH (02:26)
[2024-10-23] MEDS: PERFLUTREN PROTEIN-A MICROSPHR (Optison) 0.22 MG/ML 3ML VIAL IV ONE (07:50)
[2024-10-23] MEDS: budesonide 0.5mg/2ml UD nebule IH SCH (08:00)
[2024-10-23] MEDS: levoFLOXACIN-Levaquin 500mg/D5 100 ML IV SCH (08:10)
[2024-10-23 08:27] LABS: ALANINE AMINOTRANSFERASE 21 U/L (12-78); ALBUMIN 1.6 G/DL (3.4-5.0); ALBUMIN/GLOBULIN RATIO 0.6 (1.1-1.5); ALKALINE PHOSPHATASE 179 IU/L (46-116); ANION GAP 5 (8-16); ASPARTATE AMINO TRANSFERASE 18 U/L (10-37); BILIRUBIN,TOTAL 0.7 MG/DL (0.1-1.0); BLOOD UREA NITROGEN 22 MG/DL (7-18); BUN/CREATININE RATIO 38.6 (10.0-20.0); CALCIUM 7.3 MG/DL (8.5-10.1); CHLORIDE 106 MMOL/L (99-107); CREATININE 0.57 MG/DL (0.40-0.90); GLUCOSE 108 MG/DL (70-104); POTASSIUM 4.4 MMOL/L (3.5-5.1); SODIUM 137 MMOL/L (135-145); TOTAL CARBON DIOXIDE 25.7 MMOL/L (24-32); TOTAL PROTEIN 4.4 G/DL (6.4-8.2); eCRCL 68 ML/MIN; eGFR > 90 ML/MIN
[2024-10-23 10:27] LABS: PRO BRAIN NATRIURETIC PEPTIDE 13113 PG/ML (0-125)
[2024-10-23 10:50] LABS: NEUTROPHILS # (AUTO) 10.8 X10'3 (1.8-7.7); RED CELL DISTRIBUTION WIDTH 25.9 % (11.5-14.5)
[2024-10-23 10:52] LABS: BASOPHILS % (AUTO) 0.4 % (0-1); EOSINOPHILS % (AUTO) 0.2 % (0-6); LYMPHOCYTES # (AUTO) 0.7 X10'3 (1.1-4.8); LYMPHOCYTES % (AUTO) 5.7 % (21-51); MEAN CORPUSCULAR HEMOGLOBIN 26.7 PG (27.0-31.0); MEAN CORPUSCULAR HGB CONC 31.3 g/dL (33.0-36.5); MEAN CORPUSCULAR VOLUME 85.3 FL (78-98); MEAN PLATELET VOLUME 10.5 FL (7.4-10.4); MONOCYTES # (AUTO) 0.9 X10'3 (0-0.9); MONOCYTES % (AUTO) 6.9 % (2-12); NEUTROPHILS % (AUTO) 86.8 % (42-75); RED BLOOD COUNT 2.16 X10'6 (4.20-5.60); WHITE BLOOD COUNT 12.4 X10'3 (4.5-11.0)
[2024-10-23] MEDS: furosemide 20 MG/2 ML vial IV ONE (11:29)
[2024-10-23 11:31] LABS: HEMATOCRIT 18.5 % (35.0-45.0); HEMOGLOBIN 5.8 g/dl (12.0-16.0)
[2024-10-23 11:32] LABS: PLATELET COUNT 22 X10'3 (140-440)
[2024-10-23 12:52] LABS: OCCULT BLOOD STOOL POSITIVE (Neg)
[2024-10-23] MEDS ORDERED: octreotide inj. 1,250 MCG in normal saline 250ml IV soln 243.75 ML IV SCH (14:15)
[2024-10-23] MEDS: metoprolol tartrate 25mg tablet PO ONE (14:17)
[2024-10-23] MEDS: octreotide inj. 500 MCG in normal saline 100ml IV soln 97.5 ML IV SCH (16:39)
[2024-10-23 19:46] LABS: EOSINOPHILS # (AUTO) 0.1 X10'3 (0-0.9); MEAN CORPUSCULAR VOLUME 87.9 FL (78-98); MONOCYTES # (AUTO) 0.7 X10'3 (0-0.9); NEUTROPHILS # (AUTO) 8.3 X10'3 (1.8-7.7); WHITE BLOOD COUNT 10.1 X10'3 (4.5-11.0)
[2024-10-23 19:47] LABS: BASOPHILS % (AUTO) 0.3 % (0-1); EOSINOPHILS % (AUTO) 0.8 % (0-6); HEMATOCRIT 27.1 % (35.0-45.0); HEMOGLOBIN 8.9 g/dl (12.0-16.0); LYMPHOCYTES % (AUTO) 9.6 % (21-51); MEAN CORPUSCULAR HEMOGLOBIN 28.9 PG (27.0-31.0); MEAN CORPUSCULAR HGB CONC 32.8 g/dL (33.0-36.5); MONOCYTES % (AUTO) 7.1 % (2-12); NEUTROPHILS % (AUTO) 82.2 % (42-75); RED BLOOD COUNT 3.08 X10'6 (4.20-5.60)
[2024-10-23 19:56] LABS: PLATELET COUNT 25 X10'3 (140-440)
[2024-10-23] MEDS: famotidine/PF 10 mg/ml inj IV SCH (22:03)
[2024-10-23] MEDS: HYDROcodone/acetaminophen 5mg/325mg tablet PO PRN (22:04)
[2024-10-24] VITALS (22 sets, daily range): BP systolic 87–120; BP diastolic 38–60; PULSE 71–87; RESP 10–22; TEMP 97.3–99.2; O2SAT 86–99
[2024-10-24 06:43] LABS: ALANINE AMINOTRANSFERASE 16 U/L (12-78); ALBUMIN 1.5 G/DL (3.4-5.0); ALBUMIN/GLOBULIN RATIO 0.6 (1.1-1.5); ALKALINE PHOSPHATASE 136 IU/L (46-116); ANION GAP 3 (8-16); BILIRUBIN,TOTAL 0.7 MG/DL (0.1-1.0); BLOOD UREA NITROGEN 13 MG/DL (7-18); BUN/CREATININE RATIO 37.1 (10.0-20.0); CALCIUM 7.6 MG/DL (8.5-10.1); CHLORIDE 109 MMOL/L (99-107); CREATININE 0.35 MG/DL (0.40-0.90); GLUCOSE 109 MG/DL (70-104); SODIUM 139 MMOL/L (135-145); TOTAL CARBON DIOXIDE 27.5 MMOL/L (24-32); eCRCL 111 ML/MIN; eGFR > 90 ML/MIN
[2024-10-24 06:45] LABS: ASPARTATE AMINO TRANSFERASE 28 U/L (10-37); POTASSIUM 5.1 MMOL/L (3.5-5.1)
[2024-10-24 07:26] LABS: EOSINOPHILS # (AUTO) 0.1 X10'3 (0-0.9); HEMATOCRIT 23.9 % (35.0-45.0); HEMOGLOBIN 7.8 g/dl (12.0-16.0); LYMPHOCYTES # (AUTO) 0.8 X10'3 (1.1-4.8); LYMPHOCYTES % (AUTO) 13.6 % (21-51); MEAN PLATELET VOLUME 9.1 FL (7.4-10.4); MONOCYTES # (AUTO) 0.5 X10'3 (0-0.9); NEUTROPHILS # (AUTO) 4.5 X10'3 (1.8-7.7)
[2024-10-24 07:28] LABS: BASOPHILS % (AUTO) 0.4 % (0-1); MEAN CORPUSCULAR HEMOGLOBIN 28.9 PG (27.0-31.0); MEAN CORPUSCULAR HGB CONC 32.7 g/dL (33.0-36.5); MEAN CORPUSCULAR VOLUME 88.4 FL (78-98); MONOCYTES % (AUTO) 9.2 % (2-12); NEUTROPHILS % (AUTO) 74.8 % (42-75); RED CELL DISTRIBUTION WIDTH 21.1 % (11.5-14.5)
[2024-10-24 07:39] LABS: PLATELET COUNT 23 X10'3 (140-440)
[2024-10-24 08:17] LABS: PLATELET ESTIMATE DECREASED
[2024-10-24 08:18] LABS: ANISOCYTOSIS 3+; HYPOCHROMASIA 1+; POLYCHROMASIA 2+
[2024-10-24 08:26] LABS: TARGET CELLS FEW
[2024-10-24 08:27] LABS: SCHISTOCYTES FEW
[2024-10-24] MEDS: lansoprazole 15mg solutab PO SCH (08:48)
[2024-10-24 09:15] LABS: APTT 21 SECONDS (22-32); D-DIMER 3.71 MG/L FEU (0-0.50); FIBRINOGEN 173 MG/DL (177-424); INR 1.2 INR; PROTHROMBIN TIME 12.3 SECONDS (9.0-12.0)
[2024-10-24] MEDS: pantoprazole 40MG/NS 100ML BAG 100 ML IV SCH (11:00)
[2024-10-24 13:15] LABS: HEMOGLOBIN 7.4 g/dl (12.0-16.0); WHITE BLOOD COUNT 5.7 X10'3 (4.5-11.0)
[2024-10-24 13:17] LABS: HEMATOCRIT 22.3 % (35.0-45.0); MEAN CORPUSCULAR HEMOGLOBIN 29.4 PG (27.0-31.0); MEAN CORPUSCULAR HGB CONC 33.1 g/dL (33.0-36.5); MEAN CORPUSCULAR VOLUME 88.8 FL (78-98); MEAN PLATELET VOLUME 9.6 FL (7.4-10.4); RED BLOOD COUNT 2.51 X10'6 (4.20-5.60); RED CELL DISTRIBUTION WIDTH 21.1 % (11.5-14.5)
[2024-10-24 13:21] LABS: PLATELET COUNT 27 X10'3 (140-440)
[2024-10-24] MEDS: HYDROcodone/acetaminophen 5mg/325mg tablet PO PRN (16:29)
[2024-10-24] MEDS ORDERED: iohexol 300mg/ml 100ml inj. ONE (17:51)
[2024-10-24 20:38] LABS: BASOPHILS # (AUTO) 0.1 X10'3 (0-0.2); LYMPHOCYTES # (AUTO) 0.7 X10'3 (1.1-4.8); MEAN PLATELET VOLUME 8.1 FL (7.4-10.4); NEUTROPHILS # (AUTO) 3.6 X10'3 (1.8-7.7)
[2024-10-24 20:40] LABS: BASOPHILS % (AUTO) 1.3 % (0-1); EOSINOPHILS % (AUTO) 0.7 % (0-6); HEMATOCRIT 23.7 % (35.0-45.0); HEMOGLOBIN 7.8 g/dl (12.0-16.0); LYMPHOCYTES % (AUTO) 13.9 % (21-51); MEAN CORPUSCULAR HEMOGLOBIN 29.5 PG (27.0-31.0); MEAN CORPUSCULAR HGB CONC 33.1 g/dL (33.0-36.5); MEAN CORPUSCULAR VOLUME 89.1 FL (78-98); MONOCYTES # (AUTO) 0.4 X10'3 (0-0.9); MONOCYTES % (AUTO) 9.2 % (2-12); NEUTROPHILS % (AUTO) 74.9 % (42-75); PLATELET COUNT 53 X10'3 (140-440); RED BLOOD COUNT 2.66 X10'6 (4.20-5.60); RED CELL DISTRIBUTION WIDTH 21.7 % (11.5-14.5); WHITE BLOOD COUNT 4.8 X10'3 (4.5-11.0)
[2024-10-25] VITALS (18 sets, daily range): BP systolic 86–120; BP diastolic 54–64; PULSE 76–84; RESP 15–24; TEMP 97.6–98.8; O2SAT 91–98
[2024-10-25 02:42] LABS: BASOPHILS % (AUTO) 1.2 % (0-1); EOSINOPHILS # (AUTO) 0.1 X10'3 (0-0.9); EOSINOPHILS % (AUTO) 1.4 % (0-6); LYMPHOCYTES # (AUTO) 0.7 X10'3 (1.1-4.8); MEAN CORPUSCULAR HEMOGLOBIN 29.4 PG (27.0-31.0); MEAN CORPUSCULAR HGB CONC 32.9 g/dL (33.0-36.5); MEAN CORPUSCULAR VOLUME 89.3 FL (78-98); MEAN PLATELET VOLUME 8.4 FL (7.4-10.4); MONOCYTES # (AUTO) 0.4 X10'3 (0-0.9); NEUTROPHILS # (AUTO) 2.7 X10'3 (1.8-7.7); NEUTROPHILS % (AUTO) 69.4 % (42-75); RED BLOOD COUNT 2.35 X10'6 (4.20-5.60); RED CELL DISTRIBUTION WIDTH 21.3 % (11.5-14.5); WHITE BLOOD COUNT 3.9 X10'3 (4.5-11.0)
[2024-10-25 02:51] LABS: HEMOGLOBIN 6.9 g/dl (12.0-16.0); PLATELET COUNT 49 X10'3 (140-440)
[2024-10-25 02:54] LABS: ALANINE AMINOTRANSFERASE 13 U/L (12-78); ALBUMIN 1.6 G/DL (3.4-5.0); ALBUMIN/GLOBULIN RATIO 0.6 (1.1-1.5); ALKALINE PHOSPHATASE 128 IU/L (46-116); ANION GAP 2 (8-16); ASPARTATE AMINO TRANSFERASE 21 U/L (10-37); BILIRUBIN,TOTAL 0.5 MG/DL (0.1-1.0); BLOOD UREA NITROGEN 7 MG/DL (7-18); BUN/CREATININE RATIO 10.9 (10.0-20.0); CALCIUM 6.9 MG/DL (8.5-10.1); CHLORIDE 106 MMOL/L (99-107); CREATININE 0.64 MG/DL (0.40-0.90); GLUCOSE 115 MG/DL (70-104); POTASSIUM 3.7 MMOL/L (3.5-5.1); SODIUM 137 MMOL/L (135-145); TOTAL CARBON DIOXIDE 28.6 MMOL/L (24-32); TOTAL PROTEIN 4.3 G/DL (6.4-8.2); eCRCL 61 ML/MIN; eGFR > 90 ML/MIN
[2024-10-25 07:24] LABS: BASOPHILS % (AUTO) 0.8 % (0-1); EOSINOPHILS # (AUTO) 0.1 X10'3 (0-0.9); EOSINOPHILS % (AUTO) 1.5 % (0-6); LYMPHOCYTES # (AUTO) 0.6 X10'3 (1.1-4.8); LYMPHOCYTES % (AUTO) 16.7 % (21-51); MEAN CORPUSCULAR HEMOGLOBIN 29.5 PG (27.0-31.0); MEAN CORPUSCULAR HGB CONC 32.7 g/dL (33.0-36.5); MEAN CORPUSCULAR VOLUME 90.2 FL (78-98); MONOCYTES # (AUTO) 0.4 X10'3 (0-0.9); MONOCYTES % (AUTO) 11.6 % (2-12); NEUTROPHILS # (AUTO) 2.4 X10'3 (1.8-7.7); NEUTROPHILS % (AUTO) 69.4 % (42-75); RED BLOOD COUNT 2.31 X10'6 (4.20-5.60); RED CELL DISTRIBUTION WIDTH 21.2 % (11.5-14.5); WHITE BLOOD COUNT 3.4 X10'3 (4.5-11.0)
[2024-10-25 07:43] LABS: HEMATOCRIT 20.9 % (35.0-45.0); HEMOGLOBIN 6.8 g/dl (12.0-16.0)
[2024-10-25 07:44] LABS: PLATELET COUNT 42 X10'3 (140-440)
[2024-10-25 08:33] LABS: ABSOLUTE RETICS # 173100 /CUMM (23000-93000); RETICULOCYTE % (AUTO) 7.6 % (0.5-1.5)
[2024-10-25] MEDS: levoFLOXACIN-Levaquin 500mg/D5 100 ML IV SCH (10:22)
[2024-10-25] MEDS: HYDROcodone/acetaminophen 5mg/325mg tablet PO PRN (15:06)
[2024-10-25 18:50] LABS: BASOPHILS # (AUTO) 0.1 X10'3 (0-0.2); EOSINOPHILS # (AUTO) 0.1 X10'3 (0-0.9); HEMOGLOBIN 8.9 g/dl (12.0-16.0); LYMPHOCYTES # (AUTO) 0.7 X10'3 (1.1-4.8); MONOCYTES # (AUTO) 0.5 X10'3 (0-0.9)
[2024-10-25 18:52] LABS: BASOPHILS % (AUTO) 1.1 % (0-1); EOSINOPHILS % (AUTO) 1.5 % (0-6); HEMATOCRIT 27.2 % (35.0-45.0); LYMPHOCYTES % (AUTO) 14.5 % (21-51); MEAN CORPUSCULAR HGB CONC 32.8 g/dL (33.0-36.5); MEAN CORPUSCULAR VOLUME 88.6 FL (78-98); MEAN PLATELET VOLUME 8.3 FL (7.4-10.4); MONOCYTES % (AUTO) 10.3 % (2-12); NEUTROPHILS # (AUTO) 3.5 X10'3 (1.8-7.7); NEUTROPHILS % (AUTO) 72.6 % (42-75); RED BLOOD COUNT 3.07 X10'6 (4.20-5.60); RED CELL DISTRIBUTION WIDTH 19.3 % (11.5-14.5); WHITE BLOOD COUNT 4.8 X10'3 (4.5-11.0)
[2024-10-25 18:59] LABS: PLATELET COUNT 45 X10'3 (140-440)
[2024-10-26 02:00] VITALS: BP 132/72; PULSE 80; RESP 20; TEMP 98.9; O2SAT 98
[2024-10-26 06:50] VITALS: BP 128/78; PULSE 78; RESP 20; TEMP 98.4; O2SAT 96
[2024-10-26 07:43] LABS: ALANINE AMINOTRANSFERASE 10 U/L (12-78); ALBUMIN 1.5 G/DL (3.4-5.0); ALBUMIN/GLOBULIN RATIO 0.5 (1.1-1.5); ALKALINE PHOSPHATASE 125 IU/L (46-116); ANION GAP 5 (8-16); ASPARTATE AMINO TRANSFERASE 13 U/L (10-37); BILIRUBIN,TOTAL 0.8 MG/DL (0.1-1.0); BLOOD UREA NITROGEN 5 MG/DL (7-18); BUN/CREATININE RATIO 9.1 (10.0-20.0); CALCIUM 7.1 MG/DL (8.5-10.1); CHLORIDE 106 MMOL/L (99-107); CREATININE 0.55 MG/DL (0.40-0.90); GLUCOSE 83 MG/DL (70-104); POTASSIUM 3.5 MMOL/L (3.5-5.1); SODIUM 138 MMOL/L (135-145); TOTAL PROTEIN 4.5 G/DL (6.4-8.2); eCRCL 71 ML/MIN; eGFR > 90 ML/MIN
[2024-10-26 07:45] LABS: BASOPHILS % (AUTO) 0.7 % (0-1); EOSINOPHILS # (AUTO) 0.1 X10'3 (0-0.9); EOSINOPHILS % (AUTO) 1.9 % (0-6); HEMATOCRIT 27.9 % (35.0-45.0); HEMOGLOBIN 9.3 g/dl (12.0-16.0); LYMPHOCYTES # (AUTO) 0.7 X10'3 (1.1-4.8); MEAN CORPUSCULAR HEMOGLOBIN 29.4 PG (27.0-31.0); MEAN CORPUSCULAR HGB CONC 33.2 g/dL (33.0-36.5); MEAN CORPUSCULAR VOLUME 88.6 FL (78-98); MONOCYTES # (AUTO) 0.4 X10'3 (0-0.9); MONOCYTES % (AUTO) 10.1 % (2-12); NEUTROPHILS # (AUTO) 3.2 X10'3 (1.8-7.7); NEUTROPHILS % (AUTO) 72.3 % (42-75); RED BLOOD COUNT 3.15 X10'6 (4.20-5.60); RED CELL DISTRIBUTION WIDTH 19.8 % (11.5-14.5); WHITE BLOOD COUNT 4.4 X10'3 (4.5-11.0)
[2024-10-26 07:51] LABS: PLATELET COUNT 42 X10'3 (140-440)
[2024-10-26 08:00] VITALS: RESP 20; O2SAT 96
[2024-10-26 08:21] VITALS: PULSE 103; RESP 22; O2SAT 98
[2024-10-26 11:05] VITALS: BP 107/57; PULSE 80; RESP 22; TEMP 97.8; O2SAT 97
[2024-10-26] MEDS: ferrous sulfate 325mg tablet PO SCH (13:06)
== END 2024-10-26 16:22 | DRG 368 ==
LOC: ER 22:17 → ED HOLD 22:58 → UNDOADMIN 22:58 → ED HOLD 10-18 04:44 → CICU 2S 10-18 11:09 → PCU 3S 10-19 17:53 → ORTHO 4S 10-22 05:28 → PCU 3S 10-22 21:48
PROVIDERS: ADMIT Internal Medicine Pulmonary Disease; ATTEND Internal Medicine Pulmonary Disease
PROC: 30233N1 Transfusion of Nonautologous Red Blood Cells into Peripheral Vein, Percutaneous Approach (ICD-10-PCS; principal; 2024-10-18)
PROC: 02HV33Z Insertion of Infusion Device into Superior Vena Cava, Percutaneous Approach (ICD-10-PCS; 2024-10-18)
PROC: B548ZZA Ultrasonography of Superior Vena Cava, Guidance (ICD-10-PCS; 2024-10-18)
PROC: 0DB68ZX Excision of Stomach, Via Natural or Artificial Opening Endoscopic, Diagnostic (ICD-10-PCS; 2024-10-20)
PROC: 30233R1 Transfusion of Nonautologous Platelets into Peripheral Vein, Percutaneous Approach (ICD-10-PCS; 2024-10-21)
PROC: 07DT3ZX Extraction of Bone Marrow, Percutaneous Approach, Diagnostic (ICD-10-PCS; 2024-10-22)
PROC: BW211ZZ Computerized Tomography (CT Scan) of Abdomen and Pelvis using Low Osmolar Contrast (ICD-10-PCS; 2024-10-24)
DX: K21.01 Gastro-esophageal reflux disease with esophagitis, with bleeding (principal); E43 Unspecified severe protein-calorie malnutrition; J96.00 Acute respiratory failure, unspecified whether with hypoxia or hypercapnia; N17.0 Acute kidney failure with tubular necrosis; E87.20 Acidosis, unspecified; J44.1 Chronic obstructive pulmonary disease with (acute) exacerbation; Z68.1 Body mass index [BMI] 19.9 or less, adult; R65.10 Systemic inflammatory response syndrome (SIRS) of non-infectious origin without acute organ dysfunction; D50.9 Iron deficiency anemia, unspecified; D69.6 Thrombocytopenia, unspecified; F17.200 Nicotine dependence, unspecified, uncomplicated; Z74.09 Other reduced mobility; J44.9 Chronic obstructive pulmonary disease, unspecified; L89.159 Pressure ulcer of sacral region, unspecified stage; L89.309 Pressure ulcer of unspecified buttock, unspecified stage; L89.129 Pressure ulcer of left upper back, unspecified stage; Z88.1 Allergy status to other antibiotic agents; Z80.1 Family history of malignant neoplasm of trachea, bronchus and lung; Z86.718 Personal history of other venous thrombosis and embolism; Z90.49 Acquired absence of other specified parts of digestive tract; Z88.8 Allergy status to other drugs, medicaments and biological substances
CPT/HCPCS: 36415; 36430; 36556; 36600; 43239; 71045; 74178; 80053; 81001; 82140; 82150; 82272; 82570; 82728; 82803; 82948; 83010; 83540; 83550; 83605; 83615; 83690; 83735; 83880; 83930; 83935; 84100; 84300; 85008; 85018; 85025; 85027; 85045; 85379; 85384; 85610; 85730; 85999; 86870; 86880; 86885; 86900; 86901; 86902; 86905; 86920; 86922; 87040; 87077; 87081; 87088; 87186; 87207; 88184; 88185; 88305; 88311; 88313; 92508; 92616; 93005; 93306; 94640; 94760; 97110; 97116; 97163; 97164; 97530; 99152; 99291; A4314; A4615; A4620; A5200; A6212; A6213; A6222; A6223; A6250; A6258; A6449; C1751; C1758; G0378; J0500; J0780; J1171; J1940; J1956; J2250; J2270; J2354; J2405; J2470; J2765; J3010; J3475; J3480; J3490; J7030; J7040; J7120; P9016; P9035; Q9967

== ENCOUNTER 2024-11-03 10:21 | Emergency (ER) | payer MEDICARE, MEDICAID ==
[~2024-11-03] VITALS: Ht 170.2 cm; Wt 50.9 kg
[~2024-11-03 10:21] MED LIST changes: -APIX5TAB3 PO; -FAMO40TA86 PO; +NO HOME MEDS
[2024-11-03 10:24] VITALS: TEMP 98.9
[2024-11-03 10:59] LABS: EOSINOPHILS # (AUTO) 0.1 X10'3 (0-0.9); EOSINOPHILS % (AUTO) 1.2 % (0-6); HEMOGLOBIN 10.5 g/dl (12.0-16.0); LYMPHOCYTES # (AUTO) 1.4 X10'3 (1.1-4.8); MONOCYTES # (AUTO) 0.4 X10'3 (0-0.9); WHITE BLOOD COUNT 4.3 X10'3 (4.5-11.0)
[2024-11-03 11:00] LABS: BASOPHILS % (AUTO) 0.3 % (0-1); HEMATOCRIT 31.6 % (35.0-45.0); LYMPHOCYTES % (AUTO) 32.3 % (21-51); MEAN CORPUSCULAR HEMOGLOBIN 29.8 PG (27.0-31.0); MEAN CORPUSCULAR HGB CONC 33.1 g/dL (33.0-36.5); MEAN CORPUSCULAR VOLUME 90.1 FL (78-98); MEAN PLATELET VOLUME 7.3 FL (7.4-10.4); MONOCYTES % (AUTO) 8.5 % (2-12); NEUTROPHILS # (AUTO) 2.5 X10'3 (1.8-7.7); NEUTROPHILS % (AUTO) 57.7 % (42-75); PLATELET COUNT 337 X10'3 (140-440); RED BLOOD COUNT 3.51 X10'6 (4.20-5.60); RED CELL DISTRIBUTION WIDTH 22.1 % (11.5-14.5)
[2024-11-03 11:15] LABS: ALANINE AMINOTRANSFERASE 19 U/L (12-78); ALBUMIN 2.2 G/DL (3.4-5.0); ALBUMIN/GLOBULIN RATIO 0.6 (1.1-1.5); ALKALINE PHOSPHATASE 134 IU/L (46-116); ANION GAP 3 (8-16); ASPARTATE AMINO TRANSFERASE 15 U/L (10-37); BILIRUBIN,TOTAL 0.5 MG/DL (0.1-1.0); BLOOD UREA NITROGEN 9 MG/DL (7-18); CALCIUM 8.1 MG/DL (8.5-10.1); CHLORIDE 110 MMOL/L (99-107); GLUCOSE 96 MG/DL (70-104); LIPASE 25 U/L (16-77); SODIUM 141 MMOL/L (135-145); TOTAL CARBON DIOXIDE 28.3 MMOL/L (24-32); eCRCL 150 ML/MIN; eGFR > 90 ML/MIN
[2024-11-03 12:45] VITALS: BP 115/64; PULSE 71; RESP 18; O2SAT 96
== END 2024-11-03 17:14 | disposition home or self-care (01) ==
LOC: ER 10:22
DX: R53.1 Weakness (principal); R10.13 Epigastric pain; J44.9 Chronic obstructive pulmonary disease, unspecified; F17.210 Nicotine dependence, cigarettes, uncomplicated; Z86.718 Personal history of other venous thrombosis and embolism; Z88.5 Allergy status to narcotic agent; Z88.6 Allergy status to analgesic agent
CPT/HCPCS: 36415; 80053; 83690; 85025; 99284

== ENCOUNTER 2024-11-16 13:16 | Emergency (ER) | payer MEDICARE, MEDICAID ==
[~2024-11-16] VITALS: Ht 170.2 cm; Wt 42.3 kg
[2024-11-16 15:27] LABS: BASOPHILS % (AUTO) 0.8 % (0-1); EOSINOPHILS # (AUTO) 0.1 X10'3 (0-0.9); HEMATOCRIT 37.4 % (35.0-45.0); LYMPHOCYTES # (AUTO) 1.7 X10'3 (1.1-4.8); LYMPHOCYTES % (AUTO) 31.9 % (21-51); MEAN CORPUSCULAR HEMOGLOBIN 30.2 PG (27.0-31.0); MEAN CORPUSCULAR HGB CONC 32.2 g/dL (33.0-36.5); MEAN CORPUSCULAR VOLUME 93.9 FL (78-98); MEAN PLATELET VOLUME 7.4 FL (7.4-10.4); MONOCYTES # (AUTO) 0.5 X10'3 (0-0.9); MONOCYTES % (AUTO) 9.7 % (2-12); NEUTROPHILS % (AUTO) 55.6 % (42-75); PLATELET COUNT 267 X10'3 (140-440); RED BLOOD COUNT 3.98 X10'6 (4.20-5.60); WHITE BLOOD COUNT 5.5 X10'3 (4.5-11.0)
[2024-11-16 15:39] LABS: ALANINE AMINOTRANSFERASE 13 U/L (12-78); ALBUMIN 2.6 G/DL (3.4-5.0); ALBUMIN/GLOBULIN RATIO 0.7 (1.1-1.5); ALKALINE PHOSPHATASE 130 IU/L (46-116); ANION GAP 4 (8-16); ASPARTATE AMINO TRANSFERASE 16 U/L (10-37); BILIRUBIN,TOTAL 0.3 MG/DL (0.1-1.0); BLOOD UREA NITROGEN 15 MG/DL (7-18); BUN/CREATININE RATIO 36.6 (10.0-20.0); CALCIUM 8.5 MG/DL (8.5-10.1); CHLORIDE 109 MMOL/L (99-107); CREATININE 0.41 MG/DL (0.40-0.90); GLUCOSE 83 MG/DL (70-104); SODIUM 142 MMOL/L (135-145); TOTAL CARBON DIOXIDE 29.4 MMOL/L (24-32); TOTAL PROTEIN 6.6 G/DL (6.4-8.2); eCRCL 91 ML/MIN; eGFR > 90 ML/MIN
[2024-11-16 16:24] VITALS: BP 113/57; PULSE 68; RESP 18; TEMP 98.1; O2SAT 100
== END 2024-11-16 16:25 | disposition home or self-care (01) ==
LOC: ER 13:16
DX: D64.9 Anemia, unspecified (principal); R63.0 Anorexia; J44.9 Chronic obstructive pulmonary disease, unspecified; Z88.5 Allergy status to narcotic agent; Z88.6 Allergy status to analgesic agent
CPT/HCPCS: 36415; 80053; 85025; 99284